=== PATIENT | male | born 1960 | race Two or more races ===

== ENCOUNTER 2021-05-11 11:31 | Emergency (ER) | payer MEDICARE, MEDICAID, SELFPAY ==
--- NOTE | ~2021-05-11 | XR_ITS ---
EXAMINATION: XR HAND, LEFT CLINICAL INFORMATION: Left hand swelling COMPARISON: None TECHNIQUE: PA, lateral, and oblique views of the left hand. FINDINGS: There is a loss of PIP and DIP joint space without bony erosive changes or periarticular spurring the MCP joint space is maintained normal. There is no acute fracture, dislocation or subluxation.. Mild reduction in the radioulnar scaphoid joint is noted. Also visualized is mild widening of the scapholunate joint. Mild dorsal distal hand soft tissue swelling. XR/XR hand LT min 3V IMPRESSION: Mild degenerative osteoarthritic changes PIP, DIP joint and radioulnar carpal joint. Mild widening of scapholunate space likely from ligamentous injury. There is mild dorsal distal hand soft tissue swelling.
[2021-05-11 12:15] VITALS: BP 112/85; PULSE 88; RESP 18; TEMP 36.6; O2SAT 95; BMI 29.4
--- NOTE | 2021-05-11 12:57 | ED_ITS ---
HPI - Extremity Problem General Chief complaint: Extremity Injury, Upper Stated complaint: L Hand Swelling No Injury Time Seen by Provider: 05/11/21 12:57 Source: patient Mode of arrival: ambulatory Limitations: no limitations History of Present Illness HPI Narrative: Patient is a 60 year old male presenting to the emergency department today with left hand pain. Patient states that a couple of days ago, he was doing house chores and jammed his left middle finger. Patient states that it hasn't really been bothering him much but he has noticed that the swelling is getting worse. Patient denies any dizziness, lightheadedness, abdominal pain, nausea, vomiting, fever, chills, blurry vision, double vision, loss of vision, chest pain, difficulty breathing, shortness of breath, back pain, night sweats, pain with urination, increased urinary frequency, increased urinary urgency, blood in his urine or stool, syncope or a near syncopal episode, bowel incontinence, bladder incontinence, bowel retention, bladder retention, or any other complaints at this time. 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 Onset (ago): day(s) (2) Pain Consistency: constant Location: left and other (hand) Severity scale (1-10): 3 Quality: dull Radiation: none Relieving factors: nothing Exacerbating factors: range of motion Associated symptoms: denies other symptoms Related Data Previous Rx's Medication Instructions Recorded cephalexin 500 mg capsule 500 mg PO Q6H 7 Days #28 cap 05/11/21 sulfamethoxazole 800 1 tab PO BID 7 Days #14 tab 05/11/21 mg-trimethoprim 160 mg tablet (Bactrim DS) Allergies Allergy/AdvReac Type Severity Reaction Status Date / Time No Known Allergies Allergy Verified 05/11/21 14:45 Review of Systems Constitutional: Constitutional: Reports no additional constitutional complaints, Denies chills, Denies fever(s) and Denies night sweats Eyes: Eyes: Reports no additional eye complaints, Denies blurry vision, Denies change in vision, Denies diplopia, Denies eye discharge, Denies loss of vision and Denies eye pain ENT: Denies dizziness Cardiovascular: Cardiovascular: Reports no additional cardiovascular complaints, Denies chest pain, Denies lightheadedness, Denies Loss of Consciousness and Denies dyspnea Respiratory: Respiratory: Reports no additional respiratory complaints and Denies dyspnea Gastrointestinal: Gastrointestinal: Reports no additional gastrointestinal complaints, Denies abdominal pain, Denies melena, Denies hematochezia, Denies change in bowel habits and Denies change in stool character Genitourinary: Genitourinary: Reports no additional male genitourinary complaints, Denies hematuria, Denies oliguria, Denies difficulty urinating, Denies dysuria, Denies urinary frequency, Denies urinary hesitancy, Denies urinary incontinence and Denies urinary urgency Musculoskeletal: Musculoskeletal: Reports no additional musculoskeletal complaints, Denies numbness and Denies tingling Comments: left hand pain and swelling Neurologic: Denies dizziness, Denies loss of vision, Denies numbness and Denies tingling Psychiatric: Psychiatric: Reports no additional psychiatric complaints Endocrine: Endocrine: Reports no additional endocrine complaints Hematologic/Lymphatic: Hematologic/Lymphatic: Reports no additional hematologic/lymphatic complaints Allergic/Immunologic: Allergic/Immunologic: Reports no additional allergic/immunologic complaints PMFSH Past Medical History Attestation statement: The following information was validated with the patient. Source: old records reviewed Medical History Colonic polyp Social History Social History Advance Directives: No Advance Directives Information Provided: No Physical Exam Vital Signs: Vital Signs: Last Vital Signs Temp 97.8 F 05/11/21 12:15 Pulse 88 05/11/21 12:15 Resp 18 05/11/21 12:15 BP 112/85 05/11/21 12:15 Pulse Ox 95 05/11/21 12:15 BMI result Body Mass Index 29.4 Const: General: cooperative, no acute distress, alert and awake Nutritional Appearance: well nourished Orientation/consciousness: patient oriented x3 Limitations: no limitations HENMT: Head: Yes normal to inspection and Yes atraumatic Ears: hearing grossly normal bilaterally and external ears normal General nose exam: Normal external nose present, no nasal discharge noted and no epistaxis Face and sinus: Yes normal facial exam, No abrasion and No laceration Mouth: Normal oral and palatal mucosa present, no drooling and no muffled voice Eyes: General: appearance normal, both eyes and all related structures Periorbital: periorbital findings normal Eyelids: Yes eyelids normal Conjunctivae: conjunctivae normal Pupils: Equal, round and reactive pupils present EOM: EOMs intact bilaterally Neck: Neck: Yes normal visual inspection, Yes full ROM and Yes no lymphadenopathy Chest: Chest palpation & inspection: normal inspection of the chest Resp: Effort & Inspection: normal respiratory effort and able to speak in complete sentences GI: Inspection: Yes normal to inspection Neuro: General: patient oriented x3 and moves all extremities Cranial nerves: Yes Equal, round and reactive pupils present Cognition (Neuro): normal cognition Motor exam (neuro): 5/5 motor strength present throughout Sensory Exam: Normal double simultaneous stimulation for sensation Coordination: [id number] test normal Extrem: General: Yes normal to inspection, Yes full ROM and Yes capillary refi ll normal Left upper extremity: hand (dorsal redness and swelling, intact ROM and PMS) Psych: Appearance: grossly normal Mental Status: mental status grossly normal Affect: normal affect Attitude: cooperative Thought process: Normal thought process present Thought content: Normal thought content present Insight: Good insight present (Psych) MDM - Extremity (Nontraumatic) MDM Narrative Medical decision making narrative: Patient is a 60 year old male presenting to the emergency department today with left hand pain. Patient's physical exam showed swelling and erythema to the dorsal aspect of the left hand, specifically just below the left middle finger MCP. Patient's ROM and PMS were intact to the left upper extremity. Patient's left hand x-ray showed mild degenerative osteoarthritic changes to the PIP, DIP joint and radioulnar carpal joint with widening of scholunate space that is likely from a ligamentous injury. I spoke to the ortho PA geospatial applications developer who agreed that it is likely a cellulitis an to treat with PO ABX and PCP FU. I explained my physical exam findings as well as all test results to the patient. I answered all questions asked by the patient. I stressed the importance of the patient taking his medication as prescribed. I stressed the importance of the patient following up with his primary care provider. I stressed the importance of the patient returning to the emergency department immediately if his symptoms were to worsen or if he were to develop any dizziness, shortness of breath, difficulty breathing, chest pain, blurry vision, loss of vision, nausea, vomiting, abdominal pain, fever, chills, back pain, or any other complaints. Patient verbalized agreement and understanding with this treatment plan and discharge. Differential Diagnosis Differential diagnosis: Likely cellulitis (fracture, dislocation) Medical Records Attestation: I reviewed the patient's medical records. Imaging Data left hand X-ray: Attestation: I personally reviewed and interpreted this imaging study as follows: Radiologist's impression: EXAMINATION: XR HAND, LEFT CLINICAL INFORMATION: Left hand swelling? COMPARISON: None? TECHNIQUE: PA, lateral, and oblique views of the left hand. FINDINGS: There is a loss of PIP and DIP joint space without bony erosive changes or periarticular spurring the MCP joint space is maintained normal. There is no acute fracture, dislocation or subluxation.. Mild reduction in the radioulnar scaphoid joint is noted. Also visualized is mild widening of the scapholunate joint. Mild dorsal distal hand soft tissue swelling. XR/XR hand LT min 3V IMPRESSION: Mild degenerative osteoarthritic changes PIP, DIP joint and radioulnar carpal joint. Mild widening of scapholunate space likely from ligamentous injury. There is mild dorsal distal hand soft tissue swelling. Dictated By: Rodrigo Goldstein MD Signed By: Electronically signed by Rodrigo Goldstein MD 05/11/21 1423 Discharge Plan Discharge Clinical Impression: Cellulitis Patient Disposition: Home, Self-Care Instructions: Cellulitis (ED), Cellulitis (DC) Additional Instructions: Follow up with your primary care provider. Return to the emergency department immediately if your symptoms worsen or if you develop any dizziness, shortness of breath, difficulty breathing, chest pain, blurry vision, loss of vision, nausea, vomiting, abdominal pain, fever, chills, back pain, or any other complaints. Prescriptions: New cephalexin 500 mg capsule 500 mg PO Q6H 7 Days Qty: 28 0RF sulfamethoxazole-trimethoprim [Bactrim DS] 800-160 mg tablet 1 tab PO BID 7 Days Qty: 14 0RF Referrals: Maryanne Ward [Primary Care Provider] - 2 days Interventions: ED Discharge Assessment Last Done: 05/11/21 14:58 Print Language: Andorran
== END 2021-05-11 15:01 | disposition home or self-care (01) ==
PROVIDERS: Emergency Provider Emergency Medicine; PCP Nurse Practitioner
DX: L03.114 Cellulitis of left upper limb (principal); M79.642 Pain in left hand
CPT/HCPCS: 73130; 99283

== ENCOUNTER → 2021-11-10 11:02 | Outpatient (BNVA) | payer MEDICARE, MEDICAID, SELFPAY | PROVIDERS: PCP Nurse Practitioner; Visit Provider Internal Medicine Cardiovascular Disease | DX: R06.09 Other forms of dyspnea (principal) | CPT/HCPCS: 93005; 99202 ==

== ENCOUNTER 2021-12-23 16:30 | Emergency (ER) | payer MEDICARE, MEDICAID, SELFPAY ==
--- NOTE | ~2021-12-23 | CT_ITS ---
EXAMINATION: CT HEAD WITHOUT CONTRAST CLINICAL INFORMATION: Fell, hit head. Unsure LOC. COMPARISON: None TECHNIQUE: Imaging was performed from the skull base to vertex without intravenous administration of contrast. This CT examination was performed using dose optimization techniques as appropriate, variously including the following: *Automated exposure control *Adjustment of mA and/or kV according to patient size (this includes techniques or standardized protocols for targeted exams where dose is matched to indication/reason for exam; i.e. extremities or head) *Use of iterative reconstruction technique Total exam dose length product: 685 mGy-cm FINDINGS: No intra or extra-axial fluid collection, hemorrhage, or mass. No ventriculomegaly. No midline shift or herniation. Basal cisterns are patent. Brambila-white matter differentiation is maintained. No territorial encephalomalacia. No significant volume loss. Small focus of hypoattenuation in the right centrum semiovale, which may represent a dilated perivascular space or prior lacunar infarct. Right parietal scalp swelling/small hematoma and laceration. No calvarial fracture. Opacified diminutive left maxillary sinus. Mastoid air cells normally aerated. CT/CT head/brain wo IV con IMPRESSION: 1. No intracranial hemorrhage or calvarial fracture. 2. Small right parietal scalp hematoma and laceration.
[2021-12-23 17:56] VITALS: BP 127/76; BP 136/84; PULSE 100; PULSE 91; RESP 16; TEMP 36.4; O2SAT 99; BMI 30.1
--- NOTE | 2021-12-23 18:14 | ECG_ITS ---
Test Reason : SYNCOPE Blood Pressure : / mmHG Vent. Rate : 084 BPM Atrial Rate : 084 BPM P-R Int : 204 ms QRS Dur : 098 ms QT Int : 382 ms P-R-T Axes : 036 044 037 degrees QTc Int : 451 ms Normal sinus rhythm Normal ECG No previous ECGs available Referred By: Dimas Joseph Electronically Signed By:DIMAS MANUCSO
--- NOTE | 2021-12-23 18:37 | ED.FALL ---
HPI - Fall General Chief Complaint: Fall Stated Complaint: Fall Time Seen by Provider: 12/23/21 18:08 Source: patient and EMS Mode of arrival: EMS Limitations: no limitations History of Present Illness HPI Narrative: Shortly prior to arrival, the patient states he was in a store getting ice cream. He does not remember any presyncopal symptoms, but states he woke up and was on the floor with pain in the back of his head. has no history of similar episodes. Patient denies any cardiac symptoms or history. Current complaint is only of a headache. Patient denies any other injuries at this time. MD complaint: fall Onset (ago): minute(s) Fall from: standing Fall witnessed: yes, by bystander Place fall occurred: other (grocery store) Loss of consciousness: yes Length of LOC: second(s) Prolonged down time: no Symptoms prior to fall: none Location of injury: head Related Data Home Medications Medication Instructions Recorded Confirmed amitriptyline 50 mg tablet mg PO 11/10/21 11/10/21 atorvastatin 40 mg tablet 40 mg PO DAILY 11/10/21 11/10/21 clonidine HCl 0.1 mg tablet 0.1 mg PO BID 11/10/21 11/10/21 levothyroxine 175 mcg tablet 175 mcg PO DAILY 11/10/21 11/10/21 omeprazole 40 mg capsule,delayed 40 mg PO DAILY 11/10/21 11/10/21 release quetiapine 100 mg tablet 100 mg PO BEDTIME 11/10/21 11/10/21 Allergies Allergy/AdvReac Type Severity Reaction Status Date / Time No Known Allergies Allergy Verified 11/10/21 11:04 Review of Systems Constitutional: Constitutional: Denies fever(s), Reports headache(s), Denies lethargy and Denies weakness Eyes: Eyes: Denies change in vision and Denies loss of vision ENT: Denies vertigo, Denies dizziness, Reports headache(s) and Denies neck pain Cardiovascular: Cardiovascular: Denies chest pain, Denies lightheadedness, Reports Loss of Consciousness and Denies dyspnea Respiratory: Respiratory: Denies cough and Denies dyspnea Gastrointestinal: Gastrointestinal: Denies nausea and Denies vomiting Musculoskeletal: Musculoskeletal: Denies muscle weakness and Denies neck pain Neurologic: Denies Abnormal speech present, Denies vertigo, Denies dizziness, Reports headache(s), Denies loss of vision and Denies weakness Psychiatric: Psychiatric: Denies anxiety and Denies depression [facility] Past Medical History Source: nursing notes reviewed Medical History Colonic polyp Family History Family History Father High cholesterol Mother Lung cancer Social History Social History Alcohol intake: current Alcohol intake frequency: 0-2 drinks per day Alcohol type: beer, wine and hard liquor Substance Use Type: Heroin Advance Directives: No Advance Directives Information Provided: No Physical Exam Vital Signs: Vital Signs: Last Vital Signs Temp 97.7 F 12/23/21 21:17 Pulse 84 12/23/21 21:17 Resp 12 12/23/21 21:17 BP 123/76 12/23/21 21:17 Pulse Ox 98 12/23/21 21:17 O2 Del Method 12/23/21 21:17 BMI result Body Mass Index 30.1 Const: General: cooperative and no acute distress Nutritional Appearance: average body habitus Orientation/consciousness: patient oriented x3 Limitations: no limitations HEENT: Head: Yes No palpable skull fracture present and Yes laceration Head images: 1. 3 cm laceration, superficial Ears: hearing grossly normal bilaterally General nose exam: Normal external nose present Face and sinus: Yes normal facial exam Eyes: General: appearance normal, both eyes and all related structures Sclerae: sclerae normal Corneas: corneas normal Neck: Other: cervical collar in place Neck: Yes normal visual inspection, No anterior neck swelling and No midline deformity Chest: Chest palpation & inspection: normal inspection of the chest Resp: Effort & Inspection: normal respiratory effort and no cough Cardio: Rate: regular rate Rhythm: regular rhythm GI: Inspection: Yes normal to inspection, No Abdominal panniculus present and No obesity : General: Yes no CVA tenderness Back/Spine/Pelvis: Back: no CVA tenderness Cervical Spine: collar present, No cervical muscular tenderness and No Cervical spine tenderness Thoracic/Lumbar Spine: thoracic and lumbar spine normal to inspection, No thoracic spinal tenderness and No lumbar spinal tenderness Pelvis: no pain with anterior-posterior compression Skin: General skin exam: no rashes or lesions noted and no jaundice Wounds: wounds noted (3 cm laceration of the posterior right scalp) Neuro: General: patient oriented x3 Cranial nerves: Yes CN's II-XII intact bilaterally Speech: No Abnormal speech present Motor exam (neuro): 5/5 motor strength present throughout Extrem: General: Yes normal to inspection and Yes full ROM Psych: Appearance: grossly normal Mental Status: mental status grossly normal Speech and movement: Normal speech and movement present Affect: normal affect Course Course Course Narrative: Initial hematocrit 29.6. Patient states that he has been anemic for quite a long time. Does not have any other symptoms of acute anemia. After repair of his laceration, the patient is ambulatory in the department without symptoms. Reevaluation(s) Reevaluation #1: Patient returned to CT scan, continues to be awake and alert with no other symptoms. Time: 20:30 Procedures Laceration Laceration 1: Site: scalp Side (If applicable): right Size (cm): 3 Description: stellate Depth: simple, single layer Pre-repair: wound explored Skin layer closed with: other (farhad) Number of sutures: 4 MDM - Fall MDM Narrative Medical decision making narrative: 61-year-old male who had an episode of apparent syncope while in the store has no significant history of previous similar episodes. Does drink alcohol and has a history of methadone maintenance. noted on the patient's laboratory studies was an anemia with a hematocrit of 29.6. Patient lives in a Sober house, and would like to be discharged as his ride is here. The patient exhibits no signs or symptoms of acute anemia, and states that he has been anemic for some time. He does have a primary care doctor who he will follow up with tomorrow. He is advised to have farhad removed in 5-6 days. Differential Diagnosis Differential diagnosis: Likely syncope and concussion with loss of consciousness Medical Records Attestation: I reviewed the patient's medical records. Lab Data Attestation: I reviewed the patient's lab results. Lab results narrative: Patient is noted to have a hematocrit of 29.6 which is low, although anemia is listed as 1 of the patient's past medical history problems. Result diagrams: 12/23/21 19:47 12/23/21 19:47 Labs: Lab Results 12/23/21 12/23/21 12/23/21 Range/Units 19:47 19:47 19:47 WBC 6.3 (4.8-10.8) X10*3/uL RBC 3.53 L (4.60-5.80) X10*6/uL Hgb 10.2 L (14.0-18.0) g/dl Hct 29.6 L (42.0-52.0) % MCV 83.9 (80.0-98.0) fL MCH 28.9 (27.0-33.0) pg MCHC 34.5 (31.0-36.0) g/dl RDW 13.2 (11.0-16.0) % Plt Count 202 (160-400) X10*3/uL MPV 9.3 L (9.4-12.4) fL Immature Gran % (Auto) 0.3 (0.0-0.4) % Neut % (Auto) 73.2 H (45-73) % Lymph % (Auto) 17.0 L (20-40) % Finney % (Auto) 8.6 (2-11) % Eos % (Auto) 0.6 (0-4) % Baso % (Auto) 0.3 (0-2) % Lymph # (Auto) 1.1 L (1.2-4.9) X10*3/uL Finney # (Auto) 0.5 (0.1-1.2) X10*3/uL Eos # (Auto) 0.0 (0.0-0.4) X10*3/uL Baso # (Auto) 0.0 (0.0-0.2) X10*3/uL Abs Immat Gran (auto) 0.02 (0.00-0.03) X10*3/uL Absolute Neuts (auto) 4.6 (2.0-8.3) x10*3/uL Absolute Nucleated RBC 0.000 (0.0-0.012) X10*3/uL Nucleated RBC % (auto) 0.0 (0.0-0.2) /100WBC Sodium 137 (135-145) mmol/L Potassium 4.1 (3.3-5.1) mmol/L Chloride 100 (96-108) mmol/L Carbon Dioxide 29 (22-29) mmol/L Anion Gap 12 (12-20) BUN 7 L (9-16) mg/dL Creatinine 0.80 (0.5-1.4) mg/dL Estim Creat Clear Calc 115.1 Estimated GFR > 60 Random Glucose 92 (60-115) mg/dL Calcium 9.2 (8.4-10.2) mg/dL Troponin I High Sens 5.0 (<3.5-35.0) ng/L Imaging Data CT scan - head: Attestation: I personally reviewed and interpreted this imaging study as follows: My impression: No acute intracranial injury Radiologist's impression: FINDINGS: No intra or extra-axial fluid collection, hemorrhage, or mass. No ventriculomegaly. No midline shift or herniation. Basal cisterns are patent. Brambila-white matter differentiation is maintained. No territorial encephalomalacia. ?No significant volume loss. Small focus of hypoattenuation in the right centrum semiovale, which may represent a dilated perivascular space or prior lacunar infarct. Right parietal scalp swelling/small hematoma and laceration. No calvarial fracture. Opacified diminutive left maxillary sinus. Mastoid air cells normally aerated. ECG Data Attestation: I personally reviewed and interpreted this ECG as follows: ECG interpretation date: 12/23/21 ECG interpretation time: 19:22 Prior ECG tracings: not available for review Interpretation: Normal sinus rhythm at 84, PA interval at 204 milliseconds indicating first-degree AV block, normal QRS and QT. Normal axis. Scores Additional Scores [place] syncope rule: Score: Low risk for serious outcome Comment: [place] Syncope Rule from [employer] on 12/23/2021 All calculations should be rechecked by clinician prior to use RESULT SUMMARY: Patient is NOT in the low-risk group for serious outcome. INPUTS: Congestive heart failure history ?> 0 = No Hematocrit ?> 1 = Yes EKG abnormal (EKG changed, or any non-sinus rhythm on EKG or monitoring) ?> 0 = No Shortness of breath symptoms ?> 0 = No Systolic BP ?> 0 = No Discharge Plan Discharge Clinical Impression: Syncope Qualifiers: Syncope type: unspecified Qualified Code(s): R55 - Syncope and collapse Anemia Qualifiers: Anemia type: unspecified type Qualified Code(s): D64.9 - Anemia, unspecified Scalp laceration Qualifiers: Encounter type: initial encounter Qualified Code(s): S01.01XA - Laceration without foreign body of scalp, initial encounter Patient Disposition: Home, Self-Care Instructions: Laceration (ED), Syncope (ED) Additional Instructions: Farhad may be removed in 5-6 days. You may follow-up with an urgent care clinic for removal, or return to the emergency department for removal. Prescriptions: No Action clonidine HCl 0.1 mg tablet 0.1 mg PO BID levothyroxine 175 mcg tablet 175 mcg PO DAILY amitriptyline 50 mg tablet PO quetiapine 100 mg tablet 100 mg PO BEDTIME omeprazole 40 mg capsule,delayed release(DR/EC) 40 mg PO DAILY atorvastatin 40 mg tablet 40 mg PO DAILY Interventions: ED Discharge Assessment Last Done: 12/23/21 21:27 Discharge Date/Time: 12/23/21 21:29
[2021-12-23 20:03] LABS: MANUAL DIFF FLAG NO
[2021-12-23 20:14] LABS: Basophils Percent Auto 0.3 % (0-2); Eosinophils Percent Auto 0.6 % (0-4); Hematocrit 29.6 % (42.0-52.0); Hemoglobin 10.2 g/dl (14.0-18.0); Imm Gran Abs Auto 0.02 X10*3/uL (0.00-0.03); Imm Gran Pct Auto 0.3 % (0.0-0.4); Lymphocytes Absolute Auto 1.1 X10*3/uL (1.2-4.9); Mean Corpuscular HGB Conc 34.5 g/dl (31.0-36.0); Mean Corpuscular Hemoglobin 28.9 pg (27.0-33.0); Mean Corpuscular Volume 83.9 fL (80.0-98.0); Mean Platelet Volume 9.3 fL (9.4-12.4); Monocytes Absolute Auto 0.5 X10*3/uL (0.1-1.2); Monocytes Percent Auto 8.6 % (2-11); Neutrophils Absolute Auto 4.6 x10*3/uL (2.0-8.3); Neutrophils Percent Auto 73.2 % (45-73); Platelet Count 202 X10*3/uL (160-400); Red Blood Count 3.53 X10*6/uL (4.60-5.80); Red Cell Distribution Width 13.2 % (11.0-16.0); White Blood Count 6.3 X10*3/uL (4.8-10.8)
[2021-12-23 20:22] LABS: Anion Gap 12 (12-20); Blood Urea Nitrogen 7 mg/dL (9-16); Calcium 9.2 mg/dL (8.4-10.2); Carbon Dioxide 29 mmol/L (22-29); Chloride 100 mmol/L (96-108); Creatinine Clr Calc Pharmacy 115.1; Estimated Glomerular Filt Rate > 60; Glucose Random 92 mg/dL (60-115); Potassium 4.1 mmol/L (3.3-5.1); Sodium 137 mmol/L (135-145)
--- NOTE | 2021-12-23 20:32 | PC.NURSE ---
at bedside. C-collar removed.
[2021-12-23 21:17] VITALS: BP 123/76; PULSE 84; RESP 12; TEMP 36.5; O2SAT 98
--- NOTE | 2021-12-23 21:22 | PC.NURSE ---
Pt aox3. Breaths are even and unlabored. Laceration noted to the back of the head. Will continue to monitor.
== END 2021-12-23 21:29 | disposition home or self-care (01) ==
PROVIDERS: Emergency Provider Emergency Medicine
DX: R55 Syncope and collapse (principal); S01.01XA Laceration without foreign body of scalp, initial encounter; W19.XXXA Unspecified fall, initial encounter; D64.9 Anemia, unspecified; F11.20 Opioid dependence, uncomplicated; Z79.02 Long term (current) use of antithrombotics/antiplatelets; Z79.899 Other long term (current) drug therapy; Y93.89 Activity, other specified; Y92.512 Supermarket, store or market as the place of occurrence of the external cause; Y99.9 Unspecified external cause status
CPT/HCPCS: 12002; 36415; 70450; 80048; 84484; 85025; 93005; 99284

== ENCOUNTER 2022-09-22 12:39 | Outpatient (REF) | payer MEDICARE, MEDICAID, SELFPAY ==
--- NOTE | ~2022-09-22 | US_ITS ---
EXAMINATION: US THYROID CLINICAL INFORMATION: Acquired hypothyroidism. COMPARISON: None available. TECHNIQUE: Linear transducer grayscale and color Doppler examination with attention to the region of the thyroid. FINDINGS: No discrete thyroid tissue is identified. NODES: No lymphadenopathy is seen in the tissue surrounding the thyroid gland. US/US thyroid IMPRESSION: Unremarkable examination. ACR TI-RADS RECOMMENDATION REFERENCE: Ultrasound-guided fine-needle aspiration, followup ultrasound, no further follow up. * TR1 (0 point) and TR2 (2 points): No FNA or follow up. * TR3 (3 points): FNA if more than or equal to 2.5 cm in maximum dimension, followup ultrasound in 1, 3 and 5 years if 1.5 to 2.4 cm in maximum dimension. * TR4 (4-6 points): FNA if more than or equal to 1.5 cm in maximum dimension, followup ultrasound in 1, 2, 3 and 5 years if 1 to 1.4 cm in maximum dimension. * TR5 (more than or equal to 7 points): FNA if more than or equal to 1 cm in maximum dimension, followup ultrasound every year for 5 years if 0.5 to 0.9 cm in maximum dimension. * TR3, TR4 or TR5 nodules that are below the size threshold for followup receive no follow up.
== END 2022-09-22 12:40 | disposition home or self-care (01) ==
LOC: HO.US 12:39
PROVIDERS: PCP Student in an Organized Health Care Education/Training Program; Visit Provider Student in an Organized Health Care Education/Training Program
DX: E03.9 Hypothyroidism, unspecified (principal)
CPT/HCPCS: 76536

== ENCOUNTER 2023-01-09 14:06 | Outpatient (AMB) | payer MEDICARE, MEDICAID, SELFPAY ==
--- NOTE | 2023-01-09 14:11 | A.OFFVIS_ITS ---
Intake Vital Signs 01/09/23 14:14 Height 5 ft 10 in Weight 204 lb 9.423 oz BMI 29.4 BP 92/66 Blood Pressure Location Lt brachial Position Sitting Pulse 72 Intake Visit Reasons: DR.Ponce Crane /Dyspnea on exertion Intake Note: follow up Insurance Processing Clerk Required: No Accompanied by: Self / Same As Patient Allergies No Known Allergies Allergy (Verified 01/09/23 14:12) Medication List - Last Reconciled 01/09/23 by Raimundo Johnson MD amitriptyline 50 mg PO atorvastatin 40 mg PO DAILY clonidine HCl 0.1 mg PO BID levothyroxine 175 mcg PO DAILY methadone 7.5 mg PO DAILY omeprazole 40 mg PO DAILY quetiapine 100 mg PO BEDTIME HPI HPI Comments History of Present Illness Details 62-year-old gentleman was referred to us for dyspnea on exertion. He has background history of anxiety, anemia, latent tuberculosis and opioid use on methadone therapy. He is not a smoker but lives with his who was as chronic smoker. He has no history of lung disease. He has been noticing shortness of breath over the last year. He is saying when he walks half a mi gets out of breath. When going up stairs he also feels short of breath. No chest discomfort. Family history is significant for father dying at age 52 but he had history of alcohol use and hyperlipidemia. Cause of is unclear by patient's description. His brother also has hyperlipidemia. Patient has elevated triglycerides. 01/09/23: He returns for follow-up. He r last visit we arranged stress tests and echocardiography for the patient. Apparently symptoms improved and he canceled the appointments. He is now returning after 1 year. He is saying he has no symptoms at this point and in particular no shortness of breath or chest discomfort. He has never smoked but had secondhand smoking exposure. No documented history of lung disease. [facility] Medical History Colonic polyp Family History Father High cholesterol Mother Lung cancer Social History Alcohol intake: current Alcohol intake frequency: 0-2 drinks per day Alcohol type: beer, wine and hard liquor Substance Use Type: Heroin Review of Systems Const Denies weakness ENT Denies dizziness Card Denies chest pain, Denies chest pain with activity, Denies syncope, Denies rapid heart rate, Denies pedal edema, Denies edema, Denies leg edema, Denies lightheadedness, Denies palpitations, Denies dyspnea, Denies dyspnea on exertion and Denies orthopnea Resp Denies cough, Denies dyspnea and Denies dyspnea on exertion GI Denies hematochezia and Denies change in stool character Musc Denies abnormal gait, Denies muscle cramps, Denies muscle weakness, Denies numbness, Denies radiating pain into limb and Denies tingling Neuro Denies abnormal gait, Denies dizziness, Denies syncope, Denies numbness, Denies tingling and Denies weakness Endo Denies palpitations Physical Exam Vital Signs: Last Vital Signs Pulse 72 01/09/23 14:14 BP 92/66 01/09/23 14:14 BMI result Body Mass Index 29.4 GENERAL APPEARANCE: in no acute distress, pleasant. NECK: no carotid bruit, no jugular venous distention. SKIN: no suspicious lesions, warm and dry. HEART: no murmurs, regular rate and rhythm. LUNGS: clear to auscultation bilaterally. ABDOMEN: soft, nontender. EXTREMITIES: no edema. PERIPHERAL PULSES: equal. NEUROLOGIC: No gross deficits, AAO X 3 Office Procedures EKG Details: Normal sinus rhythm, normal ECG, QTC 442 milliseconds. 25331-[id number], Complete Assessment & Plan Assessment & Plan (1) Dyspnea on exertion: Code(s): R06.09 - Other forms of dyspnea Plan [age] year gentleman here for follow-up. He was seen a year ago when he had dyspnea on exertion. Our plan was to do stress testing and echocardiography. He did not make the appointments and is returning for follow-up. He is saying his dyspnea has improved significantly. I do not think he the stress test currently. Would recommend an echocardiogram to assess for any structural heart issues. He can see us once a year. Thank you for allowing me to participate in the care of your patient. Please feel free to contact me if you have any questions. Orders: Orders CA echo transthoracic complete Today R06.09 - Other forms of dyspnea Coding Level of Care Code Est Pt Level 3 (14660) Diagnoses Dyspnea on exertion R06.09 CPT Codes EKG - CPT: 56403-[id number], Complete ([id number])
[2023-01-09 14:14] VITALS: BP 92/66; PULSE 72; BMI 29.4
== END 2023-01-09 14:26 | disposition home or self-care (01) ==
PROVIDERS: PCP Student in an Organized Health Care Education/Training Program; Visit Provider Internal Medicine Cardiovascular Disease
DX: R06.09 Other forms of dyspnea (principal)
CPT/HCPCS: 93010; 99213

== ENCOUNTER → 2023-01-09 14:06 | Outpatient (BNVA) | payer MEDICARE, MEDICAID, SELFPAY | PROVIDERS: PCP Student in an Organized Health Care Education/Training Program; Visit Provider Internal Medicine Cardiovascular Disease | DX: R06.09 Other forms of dyspnea (principal) | CPT/HCPCS: 93005; 99212 ==

== ENCOUNTER 2023-02-25 11:58 | Emergency (ER) | payer MEDICARE, MEDICAID, SELFPAY ==
[2023-02-25 12:07] VITALS: BP 136/94; BP 144/90; PULSE 118; PULSE 99; RESP 14; TEMP 36.9; O2SAT 100; O2SAT 95; BMI 29.4
--- NOTE | 2023-02-25 12:08 | ED_ITS ---
HPI - Overdose General Chief Complaint: Overdose Stated Complaint: OVERDOSE 8MG NARCAN Time Seen by Provider: 02/25/23 12:00 Source: patient Mode of arrival: EMS Limitations: no limitations History of Present Illness HPI Narrative: Patient is a 8-year-old male who presents emergency department via EMS for evaluation after overdose. He reports that this was an unintentional overdose, he snorted 2 bags of heroin today after being sober for the past 6 months, where he used once at that time. He reports prior to that 6 month everton he was sober for 1 year. He is followed by [facility] in [place] methadone clinic; received 40 mg dosing today reportedly. He was in the area visiting [place] for [place] when he overdosed. Bystanders had administered Narcan 8 mg intranasally. Which he expresses regret surrounding his usage today, denies suicidal or homicidal ideations. He is calm and cooperative, and grateful for the assistance today. He denies any physical complaints. Related Data Home Medications Medication Instructions Recorded Confirmed atorvastatin 40 mg tablet 40 mg PO DAILY 11/10/21 01/09/23 clonidine HCl 0.1 mg tablet 0.1 mg PO BID 11/10/21 01/09/23 levothyroxine 175 mcg tablet 175 mcg PO DAILY 11/10/21 01/09/23 omeprazole 40 mg capsule,delayed 40 mg PO DAILY 11/10/21 01/09/23 release quetiapine 100 mg tablet 100 mg PO BEDTIME 11/10/21 01/09/23 amitriptyline 50 mg tablet 50 mg PO 01/09/23 01/09/23 methadone 10 mg/mL oral concentrate 7.5 mg PO DAILY 01/09/23 01/09/23 Allergies Allergy/AdvReac Type Severity Reaction Status Date / Time No Known Allergies Allergy Verified 01/09/23 14:12 Review of Systems Review of Systems: Yes all other systems are reviewed and are negative [facility] Past Medical History Attestation statement: The following information was validated with the patient. Source: old records reviewed Medical History Colonic polyp Family History Family History Father High cholesterol Mother Lung cancer Social History Social History Alcohol intake: current Alcohol intake frequency: holidays/special occasions only Alcohol type: beer, wine and hard liquor Smoked in Last 30 Days: No Use of substances other than those prescribed or required for medical reasons: Yes Substance Use Type: Heroin Advance Directives: No Advance Directives Information Provided: No Physical Exam Vital Signs: Vital Signs: Last Vital Signs Temp 98.5 F 02/25/23 12:07 Pulse 99 02/25/23 12:07 Resp 14 02/25/23 12:07 BP 136/94 H 02/25/23 12:07 Pulse Ox 95 02/25/23 12:07 O2 Del Method Room Air 02/25/23 12:07 BMI result Body Mass Index 29.4 Appearance: Alert.?Oriented to person, place and time. No acute distress.?Normal affect. Eyes: Pupils equal, round and reactive to light.? ENT: Pharynx normal.?? Neck: Normal inspection.? Neck supple.?? CVS: Heart sounds normal. Normal heart rate and rhythm.? Pulses normal.?? Respiratory: No respiratory distress.? Lung sounds clear to auscultation bilaterally?? Abdomen: Soft and non-tender. Normoactive bowel sounds. Skin: Skin warm and dry.? Normal skin color.? Extremities: No lower extremity edema.? Neuro: Moves all extremities spontaneously. Sensation intact bilaterally. CN II- XII intact. No focal neuro deficits. Ambulates with normal steady gait. Course Reevaluation(s) Reevaluation #1: Patient remains in no respiratory distress. Speaking clear full sentences. Is able to tolerate oral intake. Offered to have SUDE exam, he declined, declines interest in detox. Provided with take-home Narcan kit. Discussed worrisome signs and symptoms that would warrant re-evaluation in the emergency department. Stable for discharge. Time: 14:42 Medical Decision Making Medical Decision Making MDM Narrative: Patient is a 62-year-old male with past medical history of opioid use disorder, GERD, hypothyroidism, anemia, depression, anxiety, hypercholesterolemia presenting to emergency department via EMS for evaluation after overdose as per HPI. At the time my examination he is overall well-appearing, nontoxic, afebril e. No respiratory distress. Speaking clear full sentences. Expressing great fullness for bystanders today. Reports overdose to be unintentional, has no intention to continue heroin usage at this time. Denies need for detox at this time. We will monitor over the next few hours in the emergency department to assure that he does not loses respiratory drive. Differential Diagnosis Differential Diagnoses: The differential diagnosis associated with the presentation includes (Opioid use disorder, overdose, denying suicidal ideation) Admission/Observation Consideration of admission/observation: Escalation of care including admission/observation considered (As noted above) Independent Historian Clinical information obtained from an independent historian. History obtained from or confirmed by: EMS External Record Review External record reviewed: Outpatient record Discharge Plan Discharge Clinical Impression: Opiate overdose Patient Disposition: Home, Self-Care Prescriptions: No Action clonidine HCl 0.1 mg tablet 0.1 mg PO BID levothyroxine 175 mcg tablet 175 mcg PO DAILY quetiapine 100 mg tablet 100 mg PO BEDTIME omeprazole 40 mg capsule,delayed release(DR/EC) 40 mg PO DAILY atorvastatin 40 mg tablet 40 mg PO DAILY amitriptyline 50 mg tablet 50 mg PO methadone 10 mg/mL concentrate 7.5 mg PO DAILY Referrals: Bryanna Jama MD [Primary Care Provider] -
--- NOTE | 2023-02-25 12:24 | PC.NURSE ---
belongings sent to
[2023-02-25 14:59] VITALS: BP 136/72; PULSE 88; RESP 16; O2SAT 97
--- NOTE | 2023-02-25 15:00 | PC.NURSE ---
CARE TEAM AT BEDSIDE TO OFFER SUPPORTIVE INFORMATION FOR PATIENT AND ASSISTANCE TO GET BACK HOME.
[2023-02-25] MEDS: Naloxone HCl Nasal TAKE HOME 4 MG SPRAY 8 MG NOSTRILALT (15:23)
--- NOTE | 2023-02-25 18:40 | HO.SUDE ---
Patient was brought in by ambulance after an accidental overdose, was given Narcan at [facility]. No Utox, patient reported using Heroin and assumed there was Fentanyl. Substance 1 Alcohol from age [age], does not use regularly Substance 2 Opiates: from age 21 Pattern of use: Daily Last use: Today Longest period of abstinence: Many times in sustained recovery once for 3yrs, three-five times for 2 yrs, once for 10 yrs, just had 6 mos of abstinence History of overdose: 7xs Family history: Father ETOH Co-occuring mental health: Anxiety, Depression, PTSD Medical: was treated for Hep C Treatment history: 50+ detoxes, CSS2xs, TSS 1x, left [facility] 5 days ago Gets methadone through [facility] in [place], hopes to transition to Suboxone Patient was tearful, regretted relapse when he finally has stable housing, understands he needs additional support at this time. He moved into his own apartment last week after being unhoused for many years, is on 3 waitlists for outpatient treatment, plans to join [facility] thought he could not without therapist/psychiatrist plans to ask if possible now actively pursuing. Provided patient with validation, encouragement, supportive listening, gave him the Recovery Packet and Community Resource Booklet. LYFTed to [place]
== END 2023-02-25 15:24 | disposition home or self-care (01) ==
PROVIDERS: Emergency Provider Emergency Medicine Emergency Medical Services; PCP Student in an Organized Health Care Education/Training Program
DX: T40.2X4A Poisoning by other opioids, undetermined, initial encounter (principal); Y92.9 Unspecified place or not applicable
CPT/HCPCS: 99283; 99284